=== PATIENT | male | born 1975 | race Caucasian/White ===

== ENCOUNTER 2016-12-13 17:13 | Emergency (ER) | payer BC ==
[~2016-12-13 17:13] MED LIST: traMADol 50 MG Tab PO ONE
[2016-12-13 17:16] VITALS: BP 145/90
[2016-12-13] MEDS ORDERED: Lidocaine 2% 20 ML MDV ONE (17:30)
[2016-12-13] MEDS ORDERED: Lidocaine 2% 20 ML MDV SUBCUT ONE (17:39)
--- NOTE | 2016-12-13 18:06 | EDM.PDOC ---
ED HPI GENERAL MEDICAL PROBLEM - General Chief Complaint: Upper Extremity Injury/Pain Stated Complaint: finger injury Time Seen by Provider: 12/13/16 18:02 Source of Information: Reports: Patient - History of Present Illness INITIAL COMMENTS - FREE TEXT/NARRATIVE: Injured finger while playing basketball, finger is deformed. 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 Left 5-Little finger Pain Score (Numeric/FACES): 6 - Related Data Allergies Allergy/AdvReac Type Severity Reaction Status Date / Time Sulfa (Sulfonamide Allergy Mild Rash Verified 12/13/16 17:20 Antibiotics) Home Meds: Home Meds Aspirin [Halfprin] 81 mg PO DAILY 06/28/13 [History] Cholecalciferol (Vitamin D3) [Vitamin D] 6,000 unit PO DAILY 06/28/13 [History] Multivitamin [Multivitamins] 1 each PO DAILY 06/28/13 [History] Venlafaxine HCl [Venlafaxine ER] 75 mg PO DAILY 06/28/13 [History] traMADol [Ultram] 50 mg PO ASDIRECTED PRN 06/28/13 [History] Past Medical History Respiratory History: Reports: Asthma, Bronchitis, Recurrent, Pneumonia, Recurrent Gastrointestinal History: Reports: PUD Musculoskeletal History: Reports: Fracture Neurological History: Reports: Migraines Psychiatric History: Reports: Anxiety - Past Surgical History HEENT Surgical History: Reports: Myringotomy w Tube(s), Tonsillectomy Social & Family History - Family History Family Medical History: Noncontributory - Tobacco Use Smoking Status *Q: Never Smoker Second Hand Smoke Exposure: No - Alcohol Use Days Per Week of Alcohol Use: 1 Number of Drinks Per Day: 1 Total Drinks Per Week: 1 - Recreational Drug Use Recreational Drug Use: Yes Drug Use in Last 12 Months: No Recreational Drug Use Frequency: Socially Review of Systems - Review of Systems Review Of Systems: See Below Constitutional: Reports: No Symptoms Eyes: Reports: No Symptoms Nose: Reports: No Symptoms Mouth/Throat: Reports: No Symptoms Respiratory: Reports: No Symptoms Genitourinary: Reports: No Symptoms Musculoskeletal: Reports: Joint Pain, Joint Swelling Skin: Reports: No Symptoms Neurological: Reports: No Symptoms Psychiatric: Reports: No Symptoms Trauma Exam - Physical Exam Exam: See Below Exam Limited By: No Limitations General Appearance: Reports: Alert, WD/WN Ears: Reports: Normal External Exam Nose: Reports: Normal Inspection Throat/Mouth: Reports: Normal Inspection Neck: Reports: Non-Tender Respiratory Exam: Reports: No Respiratory Distress Cardiovascular: Reports: Normal Peripheral Pulses (Male) Exam: No Hernia Rectal (Males) Exam: Normal Exam Extremities: No Evidence of Injury, Tenderness, Other (5th finger of the left hand deformed, dislocated.) Skin: Reports: Normal Color ED TRAUMA EXTREMITY PROCEDURES - Joint Reduction Site: finger (L) Sedation: regional block Local anesthesia - Lidocaine (Xylocaine): 2% plain Local anesthetic volume: other Number of Attempts: 1 Post-reduction imaging: completely reduced Joint Reduction Complications: Yes Course - Vital Signs Last Recorded V/S: Last Vital Signs Temp 98.3 F 12/13/16 17:13 Pulse 107 H 12/13/16 17:13 Resp 18 12/13/16 17:13 BP 145/90 H 12/13/16 17:13 Pulse Ox 95 12/13/16 17:13 - Orders/Labs/Meds Orders: Active Orders 24 hr Category Date Time Status Fingers Fifth Digit Lt F4 [CR] Stat Exams 12/13/16 17:20 Ordered Meds: Medications Discontinued Medications Generic Name Dose Route Start Last Admin Trade Name Freq PRN Reason Stop Dose Admin Lidocaine HCl Confirm 12/13/16 17:30 12/13/16 17:45 Xylocaine 2% Administered 12/13/16 17:31 Not Given Dose 20 ml .ROUTE .STK-MED ONE Lidocaine HCl 20 ml 12/13/16 17:39 12/13/16 17:46 Xylocaine 2% SUBCUT 12/13/16 17:40 20 ml ONETIME ONE Administration Departure - Departure Time of Disposition: 18:06 Disposition: Home, Self-Care 01 Condition: good Clinical Impression: Finger dislocation - Discharge Information Forms: ED Department Discharge - My Orders Last 24 Hours: My Active Orders 12/13/16 17:20 Fingers Fifth Digit Lt F4 [CR] Stat - Assessment/Plan Last 24 Hours: My Active Orders 12/13/16 17:20 Fingers Fifth Digit Lt F4 [CR] Stat
[2016-12-13] MEDS ORDERED: Take Home: traMADol 50 MG, 4 Tab Pack PO ONE (18:49)
== END 2016-12-13 18:22 | disposition home or self-care (01) ==
LOC: CC.ED 17:13
DX: S63.257A Unspecified dislocation of left little finger, initial encounter (principal); G43.909 Migraine, unspecified, not intractable, without status migrainosus; F41.9 Anxiety disorder, unspecified; X58.XXXA Exposure to other specified factors, initial encounter; Y93.67 Activity, basketball; Z88.2 Allergy status to sulfonamides; Z79.82 Long term (current) use of aspirin; Z79.899 Other long term (current) drug therapy
CPT/HCPCS: 73140; 99283; A9270; 26770; 96372

== ENCOUNTER → 2018-09-16 | Day surgery (SDC) | payer BC ==
[~2018-09-16] MED LIST changes: +Lactated Ringers 1,000 ML IV SCH; +Propofol 200 MG/20 ML SDV IV ONE; -traMADol 50 MG Tab PO ONE
[2018-09-16 12:55] VITALS: BP 120/78
--- NOTE | 2018-09-16 14:12 | OR ---
DATE OF OPERATION: 09/16/2018 PREOPERATIVE DIAGNOSIS: HISTORY OF COLON POLYPS. POSTOPERATIVE DIAGNOSIS: HISTORY OF COLON POLYPS. SURGEON: William Taylor MD PROCEDURE: FULL-LENGTH COLONOSCOPY. 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 COMPLICATIONS: None. SPECIMEN: None. FINDINGS: Normal full-length colonoscopy. RECOMMENDATIONS: Followup colonoscopy in 10 years. INDICATIONS: The patient is a 43-year-old male who had a prior colonoscopy with a polyp removed. He was told to have a 5-year followup. DESCRIPTION OF PROCEDURE: The patient was prepped and draped, placed in the left lateral decubitus position. A lubricated Olympus colonoscope was inserted and easily advanced to the cecum. Direct visualization of the ileocecal valve and appendiceal orifice was accomplished. The bowel prep was fine. Upon withdrawal of the scope, throughout the entire length of the colon, I could find no signs of any polyps, mass, ulceration, or bleeding sites. No vascular abnormalities or signs of colitis. There were no diverticula. The rectal vault was benign. Retroflexion of the scope in the rectum showed no perianal lesions. Air was suctioned, the scope was removed without complication. MARYJANE/CONNIE /[id number]
== END ==
LOC: CC.SDS 10:22
PROVIDERS: ATTEND Family Medicine
DX: Z12.11 Encounter for screening for malignant neoplasm of colon (principal); F41.8 Other specified anxiety disorders; E78.5 Hyperlipidemia, unspecified; E34.9 Endocrine disorder, unspecified; E55.9 Vitamin D deficiency, unspecified; Z88.2 Allergy status to sulfonamides; Z79.82 Long term (current) use of aspirin; Z79.899 Other long term (current) drug therapy; Z86.010 Personal history of colon polyps
CPT/HCPCS: 45378; J2704; J7120